=== PATIENT | female | born 1985 | race Caucasian/White ===

== ENCOUNTER 2016-11-19 20:06 | Emergency (ER) | payer MEDICAID, OTHER ==
[2016-11-19] VITALS (8 sets, daily range): BP systolic 137; BP diastolic 80; PULSE 79–88
--- NOTE | 2016-11-19 20:58 | PD ---
HPI Chief Complaint Blood pressure check Date Seen: Nov 19, 2016 Time Seen: 20:49 Travel History International Travel<30 Days: No Contact w/Intl Traveler<30Days: No Known Affected Area: No History of Present Illness HPI 31-year-old G1 at 36-3/7 weeks gestation with an EDC of December 15 who states that she had been feeling fine and checked her blood pressure at home on an automatic machine and thought that her blood pressure was elevated. She contacted her cook fishing vessel who instructed her to come here for evaluation. She denies any headache, visual changes, abdominal pain. She has had some lower extremity edema which was worse 3 days ago and now is mild. She denies any facial or upper extremity edema. She reports good movement. No bleeding or leakage of fluid. Para: 0 : 1 History Past Medical History Narrative Medical History of asthma for which she takes no medication. She has had no symptoms for 4-5 years Obstetric History Obstetric History Primigravida, uncomplicated care with Elaine Forte Past Surgical History Narrative Surgical Perirectal fistula Family History Family History: Negative Social History Alcohol Use: No Tobacco Use: No Substance Abuse: No Review of Systems Except as stated in HPI: all other systems reviewed are Neg Physical Exam Narrative GENERAL: Well-nourished, well-developed patient. SKIN: Warm and dry. HEAD: Normocephalic and atraumatic. EYES: No scleral icterus. No injection or drainage. ENT: No nasal drainage noted. Mucous membranes pink. Airway patent. NECK: Supple, trachea midline. No JVD. CARDIOVASCULAR: Regular rate and rhythm without murmurs, gallops, or rubs. RESPIRATORY: Breath sounds equal bilaterally. No accessory muscle use. ABDOMEN/GI: Abdomen soft, non-tender, bowel sounds present, no rebound, no guarding Gravid to [-] weeks size Fundal Height: [-] GENITOURINARY: External Genitalia: intact and normal in appearance BUS glands: [-] Cervix: [-] Dilatation: [-] Effacement: [-] Station: [-] Presentation: [-] Membranes: [intact or ruptured] Uterine Contractions: [-] FHT's: Category: [1-] Baseline: [-] Reactive: [Yes-] Variability: [-] Decels: [-] EXTREMITIES: No cyanosis, trace lower extremity edema. BACK: Nontender without obvious deformity. No CVA tenderness. NEUROLOGICAL: Awake and alert. Motor and sensory grossly within normal limits. Five out of 5 muscle strength in all muscle groups. Normal speech. No hyperactive deep tendon reflexes Data Data Vital Signs Reviewed: Yes MDM Medical Record Reviewed: Yes Narrative Course / MDM Assessment: Primigravida at 36+ weeks gestation with reported elevated blood pressure at home Plan: Her blood pressure is normal upon arrival here. Urinalysis will be performed to check for proteinuria. No other signs or symptoms of preeclampsia. Addendum: Negative proteinuria, blood pressure remains in the normal range, patient will be discharged home with precautions. Diagnosis Diagnosis: Primary Impression: 36 weeks gestation of Additional Impression: Hypertension affecting in third trimester Randy Melchor MD Nov 19, 2016 20:58
[2016-11-19 21:25] LABS: BACTERIA, URINE MOD /hpf; BLOOD, URINE NEG (NEG); COMMENT (UR) CULTURE INDICATED; CULTURE IF INDICATED CULTURE INDICATED; GLUCOSE,URINE NEG (NEG); KETONE, URINE NEG (NEG); NITRITE,URINE NEG (NEG); PH, URINE 6.5 (5.0-8.5); SQUAMOUS EPITHELIAL CELL URINE 1 /hpf (0-5); URINE COLOR COLORLESS (YELLW/STRAW)
== END 2016-11-19 22:00 | disposition home or self-care (01) ==
LOC: HOBED 20:06
DX: O16.3 Unspecified maternal hypertension, third trimester (principal); R82.90 Unspecified abnormal findings in urine; Z3A.36 36 weeks gestation of pregnancy
CPT/HCPCS: 81001; 82570; 84156; 87086; 99284

== ENCOUNTER 2016-11-23 04:00 | Inpatient (IN) | payer MEDICAID, OTHER ==
[~2016-11-23] VITALS: Ht 170.2 cm; Wt 79.4 kg
[2016-11-23] VITALS (48 sets, daily range): BP systolic 115–145; BP diastolic 61–89; PULSE 66–91; RESP 16–20; TEMP 98.2–98.5
[2016-11-23] MEDS ORDERED: CALNTAB (05:06)
[2016-11-23] MEDS ORDERED: MAGN500T4 PO (05:06)
[2016-11-23] MEDS: LACTATED RINGER'S 1000 ML INJ 1,000 ML IV SCH ×4 (05:07→21:30)
[2016-11-23] MEDS ORDERED: LACTATED RINGER'S 1000 ML INJ 1,000 ML IV PRN (05:07)
[2016-11-23] MEDS ORDERED: LIDOCAINE HCL 1% 50 ML VIAL INFIL PRN (05:15)
[2016-11-23] MEDS ORDERED: LIDOCAINE HCL 1% 50 ML VIAL I-DERMAL PRN (05:15)
[2016-11-23] MEDS ORDERED: OXYTOCIN 30 UNITS-500ML PREMIX 500 ML IV ONE (05:15)
[2016-11-23] MEDS ORDERED: MINERAL OIL 10 ML VIAL TOPICAL PRN (05:15)
[2016-11-23] MEDS ORDERED: ONDANSETRON HCL 4 MG/2 ML VIAL IV PRN (05:15)
[2016-11-23] MEDS ORDERED: SODIUM CHLORID 0.9% 500 ML INJ 500 ML IV PRN (05:15)
[2016-11-23] MEDS ORDERED: SODIUM CHLOR 0.9% 1000 ML INJ 1,000 ML IV PRN (05:27)
[2016-11-23 05:45] LABS: AMPHETAMINE, URINE NEG (NEG); BARBITURATES, URINE NEG (NEG); COCAINE, URINE NEG (NEG)
[2016-11-23 05:51] LABS: AUTOMATED NEUTROPHIL # 7.5 TH/MM3 (1.8-7.7); BASOPHIL # 0.1 TH/MM3 (0-0.2); EOSINOPHIL # 0.1 TH/MM3 (0-0.4); HEMO FLAGS DIFF FINAL; LYMPHOCYTE # 1.3 TH/MM3 (1.0-4.8); MEAN CELL VOLUME 84.6 FL (80.0-100.0); MEAN CORPUSCULAR HEMOGLOBIN 28.8 PG (27.0-34.0); MEAN CORPUSCULAR HGB CONC 34.1 % (32.0-36.0); PLATELET COUNT 229 TH/MM3 (150-450); RED CELL DISTRIBUTION WIDTH 13.5 % (11.6-17.2)
--- NOTE | 2016-11-23 06:11 | PD ---
HPI Chief Complaint Ordaz of Fluid Date Seen: Nov 23, 2016 (Haim Eid MD R1) Travel History International Travel<30 Days: No Contact w/Intl Traveler<30Days: No Known Affected Area: No (Haim Eid MD R1) History of Present Illness HPI Mrs. Sparks is a 31 y/o at 36/6 with no significant PMHx presents with ordaz of fluid. She states that at approximately 0330 she was lying in bed when she had a ordaz of fluid coming from her vagina. At first she thought that she had an episode of incontinence, however the fluid kept draining. She states the fluid was clear and not foul smelling. She endorses good movement with no vaginal discharge or bleeding. Her care has been with Elaine Forte and has been uncomplicated thus far. She was last seen in the OB ED on 11/19/16 for evaluation of elevated blood pressures at home. She was found to be normotensive in the ED without proteinuria on UA with a Protein/Creatinine ratio of 0. She was then discharged home with bedrest which she has been compliant with. She has no other complaints and denies any fevers, chills, SOB, chest pain, NVD, edema, or calf tenderness. (Haim Eid MD R1) History Past Medical History Narrative Medical Denies significant Hx (Haim Eid MD R1) Obstetric History Obstetric History G1PO Uncomplicated thus far, care with Elaine Forte (Haim Eid MD R1) Past Surgical History Narrative Surgical Perirectal Fistula Repair - 2010 (Haim Eid MD R1) Family History Narrative Family History Denies significant FMHx (Haim Eid MD R1) Social History Narrative Social History Denies any history of alcohol, tobacco, illicit drug use, herpes, hepatitis, HIV , or STI infection. Alcohol Use: No Tobacco Use: No Substance Abuse: No (Haim Eid MD R1) Allergies-Medications (Allergen,Severity, Reaction): Coded Allergies: Doxycycline (Verified Allergy, Severe, ANAPHLACTIC, 11/23/16) Home Meds Reported Medications Magnesium 500 Mg [id number] Mg PO DAILY Ref 0 11/23/16 Vitamin (Calna)1 Tab Tab 11/23/16 Review of Systems General / Constitutional: No: Fever, Chills Eyes: No: Blurred Vision HENT: No: Headaches Cardiovascular: No: Chest Pain or Discomfort Respiratory: No: Cough, Short of Breath Gastrointestinal: No: Nausea, Vomiting, Diarrhea Genitourinary: No: Dysuria, Discharge, Vaginal Bleeding Musculoskeletal: No: Weakness Skin: No Rash Neurologic: No: Weakness Psychiatric: No: Substance Abuse Endocrine: No: Polydipsia Hematologic/Lymphatic: No Lymph Node Enlargement (Haim Eid MD R1) Physical Exam Narrative GENERAL: Well-nourished, well-developed patient. SKIN: Warm and dry. HEAD: Normocephalic and atraumatic. EYES: No scleral icterus. No injection or drainage. ENT: No nasal drainage noted. Mucous membranes pink. Airway patent. NECK: Supple, trachea midline. No JVD. CARDIOVASCULAR: Regular rate and rhythm without murmurs, gallops, or rubs. RESPIRATORY: Breath sounds equal bilaterally. No accessory muscle use. ABDOMEN/GI: Abdomen soft, non-tender, bowel sounds present, no rebound, no guarding Gravid to 36 weeks size GENITOURINARY: External Genitalia: intact and normal in appearance Cervix: Posterior Dilatation: 1cm Effacement: 0% Station: -3 Membranes: SROM Uterine Contractions: Mild, Q4m FHT's: Category: 1 Baseline: 145 Reactive: + Variability: Moderate Decels: None EXTREMITIES: No cyanosis or edema. BACK: Nontender without obvious deformity. No CVA tenderness. NEUROLOGICAL: Awake and alert. Motor and sensory grossly within normal limits. Five out of 5 muscle strength in all muscle groups. Normal speech. (Haim Eid MD R1) Data Data Vital Signs Reviewed: Yes Orders Ob (2e) Additional Admit Info (11/23/16 04:21) Vital Signs (Adult) .ON ADMISSION (11/23/16 04:59) ^ Labor Status (11/23/16 04:59) ^ Non Stress Test (11/23/16 04:59) Pamg-1 Test .ONCE (11/23/16 04:59) Admit To Inpatient (11/23/16 ) Code Status (11/23/16 05:07) Vital Signs (Adult) .Per protocol (11/23/16 05:07) Activity Oob Ad Priscilla (11/23/16 05:07) ^ Heart (11/23/16 05:07) ^ Amnioinfusion (11/23/16 05:07) Urinary Catheter Management .ONCE (11/23/16 05:07) Diet Liquid (11/23/16 Breakfast) Lactated Ringer's 1000 Ml Inj (Lr 1000 M (11/23/16 05:07) Lactated Ringer's 1000 Ml Inj (Lr 1000 M (11/23/16 05:07) Sodium Chlorid 0.9% 500 Ml Inj (Ns 500 M (11/23/16 05:15) Sodium Chlor 0.9% 1000 Ml Inj (Ns 1000 M (11/23/16 05:27) Lidocaine 1% Inj (50 Ml) (Xylocaine 1% I (11/23/16 05:15) Citric Acid-Sodium Citrate Liq (Bicitra (11/23/16 05:15) Ondansetron Inj (Zofran Inj) (11/23/16 05:15) Fentanyl Inj (Fentanyl Inj) (11/23/16 05:15) Fentanyl Inj (Fentanyl Inj) (11/23/16 05:15) Complete Blood Count With Diff (11/23/16 05:07) Hold Clot (11/23/16 05:07) Abo/Rh Blood Type (11/23/16 05:07) Resp Oxygen Non Rebreathe Mask (11/23/16 ) ^ Epidural / Intrathecal Infus (11/23/16 05:07) Oxytocin 30 Units-500ml Premix (Pitocin (11/23/16 05:15) Lidocaine 1% Inj (50 Ml) (Xylocaine 1% I (11/23/16 05:15) Light Mineral Oil (Muri-Lube Oil) (11/23/16 05:15) Inpatient Certification (11/23/16 ) Ob/Psych Drug Screen, Urine (11/23/16 05:07) Group B Strep Pcr (11/23/16 05:08) (Haim Eid MD R1) MDM Medical Record Reviewed: Yes Plan Mrs. Sparks is a 31 y/o at 36/6 with no significant PMHx presents with ordaz of fluid 1. IUP at 36/6 -Continue routine antepartum care -Category 1 tracing, reassuring -Encourage PO hydration 2. Late PROM -Patient with rupture of membranes with clear fluid at 0330 -Admit patient for delivery, anticipate , orders placed -Team will evaluate patient's progression of labor at this time, discussed labor augmentation if necessary, mother agreeable and all questions were answered -Patient agreeable to epidural anesthesia when pain becomes intolerable -Clear liquid diet -CBC, UA, and UDS pending -GBS unknown, rapid PCR pending DW: Dr. Michelle and Dr. Wallace (Haim Eid MD R1) Attending Attestation PPROM @ 36w6d care with [facility] GBS pending, prophylaxis ordered while awaiting CAT I FHT Clear fluid Pitocin augmentation as indicated (Tuyet Michelle MD) Diagnosis Diagnosis: Primary Impression: 36 weeks gestation of Additional Impressions: Rupture of membranes with clear amniotic fluid premature rupture of membranes (PPROM) with onset of labor within 24 hours of rupture in third trimester, antepartum Haim Eid MD R1 Nov 23, 2016 06:11 Tuyet Michelle MD Nov 23, 2016 06:31
[2016-11-23] MEDS ORDERED: OXYTOCIN 30 UNITS-500ML PREMIX 500 ML IV SCH ×3 (07:15→18:30)
[2016-11-23] MEDS ORDERED: AMMONIA AROMATIC INHALANT 0.33 ML ONE (10:35)
[2016-11-23] MEDS ORDERED: fentaNYL 2MCG-BUPIV 0.125% INJ 100 ML EPIDURAL SCH ×2 (11:45→12:00)
[2016-11-23] MEDS ORDERED: NO SYSTEM NARCOTICS XX PRN ×2 (11:45→12:00)
[2016-11-23] MEDS ORDERED: ePHEDrine/NS 50 MG/5 ML SYR IV PRN ×2 (11:45→12:00)
[2016-11-23] MEDS ORDERED: DO NOT ADMINISTER ANTICOAGULANTS XX PRN ×2 (11:45→12:00)
[2016-11-23] MEDS ORDERED: fentaNYL 2MCG-BUPIV 0.125% INJ 100 ML ONE (20:32)
[2016-11-23] MEDS ORDERED: PENICILLIN G POT 5,000,000 UNITS/NS 100 ML(Mini-Bag Plus) IV ONE ×2 (22:15)
[2016-11-24] VITALS (66 sets, daily range): BP systolic 114–149; BP diastolic 72–98; PULSE 71–154; RESP 16–18; TEMP 98–98.9
[2016-11-24] MEDS: PENICILLIN G POT 2,500,000 UNITS/NS 100 ML IV SCH ×6 (02:37→10:54)
[2016-11-24] MEDS ORDERED: fentaNYL 2MCG-BUPIV 0.125% INJ 100 ML ONE (04:12)
--- NOTE | 2016-11-24 09:01 | PD.LABORPN ---
Subjective Subjective Patient resting in bed comfortably. Feeling contractions every 2-3 minutes. Denies vaginal bleeding. Endorses movement. (Jan Pratt MD R1) Objective Vital Signs Vital Signs Date Time Temp Pulse Resp B/P Pulse Ox O2 Delivery O2 Flow Rate FiO2 11/24/16 07:40 154 11/24/16 07:35 76 11/24/16 07:30 78 137/86 11/24/16 07:20 75 11/24/16 07:15 75 139/83 11/24/16 07:13 98.9 11/24/16 07:10 73 11/24/16 07:05 81 11/24/16 07:00 80 143/78 11/24/16 06:55 80 11/24/16 06:50 75 11/24/16 06:45 76 132/85 11/24/16 06:38 18 11/24/16 06:30 75 11/24/16 06:30 77 137/82 11/24/16 06:25 80 11/24/16 06:21 98.7 11/24/16 06:20 80 11/24/16 06:15 87 11/24/16 06:15 90 18 130/78 11/24/16 06:00 80 120/85 11/24/16 06:00 82 11/24/16 05:45 78 11/24/16 05:45 77 18 130/76 11/24/16 05:30 83 11/24/16 05:30 80 131/76 11/24/16 05:15 85 16 136/78 11/24/16 05:15 85 11/24/16 05:00 89 142/84 11/24/16 05:00 86 11/24/16 04:50 88 11/24/16 04:45 87 137/92 11/24/16 04:45 90 11/24/16 04:30 92 140/91 11/24/16 04:30 91 11/24/16 04:19 18 11/24/16 04:15 92 11/24/16 04:15 91 140/87 11/24/16 04:06 98.7 11/24/16 04:04 18 11/24/16 04:00 74 128/78 11/24/16 04:00 76 11/24/16 03:50 74 11/24/16 03:45 76 129/77 11/24/16 03:45 78 11/24/16 03:30 86 11/24/16 03:30 85 18 128/79 11/24/16 03:20 86 11/24/16 03:15 81 129/81 11/24/16 03:15 92 11/24/16 03:00 86 120/76 11/24/16 03:00 88 11/24/16 02:45 91 11/24/16 02:45 91 130/78 11/24/16 02:37 16 11/24/16 02:35 84 11/24/16 02:30 88 11/24/16 02:30 89 125/79 11/24/16 02:15 91 11/24/16 02:15 93 131/83 11/24/16 02:15 18 11/24/16 02:04 98.6 11/24/16 02:00 92 136/98 11/24/16 01:45 86 137/87 11/24/16 01:45 90 11/24/16 01:30 82 133/80 11/24/16 01:30 79 11/24/16 01:25 99 11/24/16 01:20 87 11/24/16 01:15 81 11/24/16 01:15 80 129/91 11/24/16 01:00 87 11/24/16 01:00 94 149/89 Objective Pelvic Exam: Dilatation: 4-5 Effacement: 80 Station: -2 Presentation: vertex Membranes: ruptured Uterine Contractions: q2-3 minutes FHT's: Category: 1 Baseline: 130 Reactive: yes Variability: moderate Decels: none (Jan Pratt MD R1) Assessment/Plan Assessment and Plan Mrs. Sparks is a 31 y/o at 37/0 in labor Cervical check: 4-5/80/-2 1. IUP at 37w -Continue routine antepartum care -Category 1 tracing, reassuring -Encourage PO hydration -Epidural in place -CLD -Anticipate (Jan Pratt MD R1) Attestation Patient seen and examined with the resident under direct supervision and I agree with the assessment and plan. (Marcos Nix MD) Jan Pratt MD R1 Nov 24, 2016 09:00 Madhavi Casas MD Nov 24, 2016 13:17 Marcos Nix MD Nov 26, 2016 11:29 -GBS unknown, rapid PCR pending Jan Pratt MD R1 Nov 24, 2016 09:00
[2016-11-24] MEDS ORDERED: LACTATED RINGER'S 1000 ML INJ 1,000 ML IV ONE (13:03)
--- NOTE | 2016-11-24 13:13 | PD.LABORPN ---
Subjective Subjective Patient seen and examined at bedside. Cervical exam 4-5/60/-2, unchanged for several hours. Patient receiving Pitocin and Ampicillin for GBS prophylaxis. SROM at 0300 on 11-23-15. heart rate tracing overall reassuring, 150s, Category 1, contractions q 2-3 minutes. D/w patient and partner current status and recommendation to proceed with delivery via section. R/B/A reviewed, all questions answered. Anesthesia/Peds notified. Will prepare for primary C/S. Objective Vital Signs Vital Signs Date Time Temp Pulse Resp B/P Pulse Ox O2 Delivery O2 Flow Rate FiO2 11/24/16 09:30 73 129/78 11/24/16 09:15 76 122/78 11/24/16 09:00 74 114/75 11/24/16 08:45 76 124/81 11/24/16 08:31 76 120/74 11/24/16 08:15 87 140/88 11/24/16 08:00 81 139/86 11/24/16 07:45 76 126/86 11/24/16 07:40 154 11/24/16 07:35 76 11/24/16 07:30 78 137/86 11/24/16 07:30 72 11/24/16 07:20 75 11/24/16 07:15 75 11/24/16 07:15 75 139/83 11/24/16 07:13 98.9 11/24/16 07:10 73 11/24/16 07:05 81 11/24/16 07:00 80 143/78 11/24/16 07:00 76 11/24/16 06:55 80 11/24/16 06:50 75 11/24/16 06:45 79 11/24/16 06:45 76 132/85 11/24/16 06:38 18 11/24/16 06:30 75 11/24/16 06:30 77 137/82 11/24/16 06:25 80 11/24/16 06:21 98.7 11/24/16 06:20 80 11/24/16 06:15 87 11/24/16 06:15 90 18 130/78 11/24/16 06:00 80 120/85 11/24/16 06:00 82 11/24/16 05:45 78 11/24/16 05:45 77 18 130/76 11/24/16 05:30 83 11/24/16 05:30 80 131/76 11/24/16 05:15 85 16 136/78 11/24/16 05:15 85 Objective Pelvic Exam: Cervix: [-] Dilatation: [-] Effacement: [-] Station: [-] Presentation: [-] Membranes: [intact or ruptured] Uterine Contractions: [-] FHT's: Category: [-] Baseline: [-] Reactive: [-] Variability: [-] Decels: [-] Madhavi Casas MD Nov 24, 2016 13:13
[2016-11-24] MEDS: CITRIC ACID-SODIUM CITRATE LIQ 30 ML UDC PO SCH ×2 (13:18→13:19)
[2016-11-24] MEDS ORDERED: OXYTOCIN 10 UNIT/ML AMP ONE (13:20)
[2016-11-24] MEDS ORDERED: LACTATED RINGER'S 1000 ML INJ 1,000 ML IV SCH ×2 (13:33→19:44)
[2016-11-24] MEDS ORDERED: MORPHINE SULFATE PF 5 MG/10 ML VIAL ONE (14:03)
[2016-11-24] MEDS ORDERED: ONDANSETRON HCL 4 MG/2 ML VIAL ONE (14:03)
[2016-11-24] MEDS ORDERED: ceFAZolin 2 GM PREMIX 50 ML IV SCH (14:15)
[2016-11-24] MEDS ORDERED: EPIDURAL-DIPHENHYDRAMINE HCL 50 MG CAP PO PRN (14:30)
[2016-11-24] MEDS ORDERED: EPIDURAL-DO NOT ADMINISTER ANTICOAGULANTS XX PRN (14:30)
[2016-11-24] MEDS ORDERED: EPIDURAL-NO SYSTEMIC NARCOTICS XX PRN (14:30)
[2016-11-24] MEDS ORDERED: EPIDURAL-NALOXONE HCL 0.4 MG/ML AMP IV PRN (14:30)
[2016-11-24] MEDS ORDERED: EPIDURAL-DIPHENHYDRAMINE HCL 50 MG/ML VIAL IV PUSH PRN (14:30)
[2016-11-24] MEDS ORDERED: OXYTOCIN 30 UNITS-500ML PREMIX 500 ML IV ONE (14:45)
[2016-11-24] MEDS ORDERED: CITRIC ACID-SODIUM CITRATE LIQ 30 ML UDC PO SCH (14:45)
[2016-11-24] MEDS ORDERED: SODIUM CHLORIDE 0.9% FLUSH 5 ML FLUSH IV PRN (14:45)
[2016-11-24] MEDS ORDERED: oxyCODONE/ACETAMINOPHEN 5 MG/325 MG TAB PO PRN ×2 (14:45)
[2016-11-24] MEDS ORDERED: ONDANSETRON HCL 4 MG/2 ML VIAL IV PUSH PRN (14:45)
[2016-11-24] MEDS ORDERED: SIMETHICONE 80 MG CHEWABLE TAB PO PRN (14:45)
--- NOTE | 2016-11-24 19:17 | PD.OB.DELI ---
Procedure Note Section Procedure Pre Op Diagnosis: (1) Prolonged antepartum rupture of membranes (2) 37 weeks gestation of (3) Rupture of membranes with clear amniotic fluid Post Op Diagnosis: (1) Prolonged antepartum rupture of membranes (2) 37 weeks gestation of (3) Rupture of membranes with clear amniotic fluid Performed by Madhavi Casas Procedure: Primary Low Transverse Sec Indication for delivery: Other (Arrest of dilation) Confirmed correct: Time-out taken Anesthesia: Epidural Medication prior to procedure: As documented in eMAR, Antibiotics, IV Urinary catheter: ml urine output (275, clear) Sterile preparation: In usual fashion Position: Supine Operative Features Skin Incision: Pfannenstiel Uterine Incision: Low transverse w/knife / blunt ext Membranes Ruptured: Previously Presentation: Vertex Time of : 13:54 Infant: Male One Minute : 9 Five Minute : 9 Weight: 3210 Status of : Viable Placenta delivered: Intact Medications: Oxytocin Estimated blood loss: 500 Procedure tolerated: Well Maternal Condition: Stable Condition: Stable Procedure in detail Dictated Madhavi Casas MD Nov 24, 2016 19:17
[2016-11-24] MEDS ORDERED: SODIUM CHLORIDE 0.9% FLUSH 5 ML FLUSH IV SCH (21:00)
[2016-11-25] MEDS: IBUPROFEN 600 MG TAB PO PRN ×4 (01:19→23:38)
[2016-11-25 04:38] LABS: AUTOMATED NEUTROPHIL # 10.6 TH/MM3 (1.8-7.7); BASOPHIL % 0.4 % (0.0-2.0); EOSINOPHIL # 0.1 TH/MM3 (0-0.4); EOSINOPHIL % 0.5 % (0.0-4.0); HEMATOCRIT 27.3 % (35.0-46.0); HEMO FLAGS DIFF FINAL; LYMPHOCYTE # 0.9 TH/MM3 (1.0-4.8); MEAN CELL VOLUME 84.5 FL (80.0-100.0); MEAN CORPUSCULAR HEMOGLOBIN 29.2 PG (27.0-34.0); MEAN CORPUSCULAR HGB CONC 34.6 % (32.0-36.0); MONO % 8.2 % (0.0-8.0); NEUT % 83.9 % (16.0-70.0); PLATELET COUNT 168 TH/MM3 (150-450); RED BLOOD COUNT 3.23 MIL/MM3 (4.00-5.30); RED CELL DISTRIBUTION WIDTH 13.7 % (11.6-17.2); WHITE BLOOD COUNT 12.6 TH/MM3 (4.0-11.0)
--- NOTE | 2016-11-25 07:09 | HHI.OB ---
Subjective Post Operative Day: 1 Remarks Postoperative day number 1. AFVSS overnight. Pain controlled with medications. Incision not draining. Decreased lochia. Denies dysuria. No breast tenderness. She is feeding the baby via breast. Appetite good. No nausea or vomiting. Endorses flatus. No bowel movement. Ambulating well. Denies calf pain, shortness of breath, or cough. Otherwise, she is doing well this morning and has no other complaints. (Jan Pratt MD R1) Remarks Patient seen and examined. Agree with resident assessment and plan. (Madhavi Casas MD) Objective Vitals/I&O Vital Signs Date Time Temp Pulse Resp B/P Pulse Ox O2 Delivery O2 Flow Rate FiO2 11/24/16 23:00 91 18 142/88 11/24/16 23:00 98.7 11/24/16 20:00 98.0 90 18 135/76 11/24/16 16:00 98.8 88 18 128/78 11/24/16 09:30 73 129/78 11/24/16 09:15 76 122/78 11/24/16 09:00 74 114/75 11/24/16 08:45 76 124/81 11/24/16 08:31 76 120/74 11/24/16 08:15 87 140/88 11/24/16 08:00 81 139/86 11/24/16 07:45 76 126/86 11/24/16 07:40 154 11/24/16 07:35 76 11/24/16 07:30 78 137/86 11/24/16 07:30 72 11/24/16 07:20 75 11/24/16 07:15 75 11/24/16 07:15 75 139/83 11/24/16 07:13 98.9 11/24/16 07:10 73 (Jan Pratt MD R1) Result Diagram: 11/25/16 0424 Objective Remarks GENERAL: Well-nourished, well-developed patient. CARDIOVASCULAR: Regular rate and rhythm without murmurs, gallops, or rubs. RESPIRATORY: Breath sounds equal bilaterally. No accessory muscle use. ABDOMEN/GI: Abdomen soft, non-tender, bowel sounds present. Incision: Clean, dry and intact. Fundus: Firm, non-tender at umbilicus. GENITOURINARY: Light to moderate bleeding. EXTREMITIES: No cyanosis or edema, non-tender, without signs of DVT. Medications and IVs Current Medications Medications (Trade) Dose Ordered Sig/David Route Start Time Stop Time Status Last Admin (Zofran Inj) 4 mg Q6H PRN IV 11/23/16 05:15 11/24/16 20:06 (fentaNYL INJ) 50 mcg Q1H PRN IV PUSH 11/23/16 05:15 11/23/16 17:36 (fentaNYL INJ) 100 mcg Q1H PRN IV PUSH 11/23/16 05:15 Mineral Oil 10 ml 10 ml UNSCH PRN TOPICAL 11/23/16 05:15 Oxytocin 500 ml @ 0 mls/hr TITRATE IV 11/23/16 18:30 11/24/16 02:09 Fentanyl/ Bupivacaine HCl 100 ml @ 0 mls/hr TITRATE EPIDURAL 11/23/16 12:00 11/24/16 14:56 (Lr 1000 ml Inj) 1,000 ml @ 100 mls/hr Q10H IV 11/24/16 19:44 11/25/16 15:43 (NS Flush) 2 ml BID IV 11/24/16 21:00 (NS Flush) 2 ml UNSCH PRN IV 11/24/16 14:45 (Mylicon Chew) 80 mg QID PRN PO 11/24/16 14:45 (Motrin) 600 mg Q6H PRN PO 11/24/16 14:45 11/25/16 01:19 (Percocet 5-325 Mg) 1 tab Q4H PRN PO 11/24/16 14:45 (Percocet 5-325 Mg) 2 tab Q4H PRN PO 11/24/16 14:45 (M-M-R Ii Inj) 0.5 ml ONCE ONCE SQ 11/25/16 16:00 11/25/16 16:01 (Boostrix Inj) 0.5 ml ONCE ONCE IM 11/25/16 16:00 11/25/16 16:01 (Zofran Inj) 4 mg Q6H PRN IV PUSH 11/24/16 14:45 Miscellaneous Information NO SYSTEMIC NARCOTICS TO BE GIVEN FO... UNSCH PRN XX 11/24/16 14:30 11/25/16 14:29 (Narcan Inj) 0.4 mg UNSCH PRN IV 11/24/16 14:30 11/25/16 14:29 (Benadryl Inj) 25 mg Q6H PRN IV PUSH 11/24/16 14:30 11/25/16 14:29 (Benadryl) 50 mg Q6H PRN PO 11/24/16 14:30 11/25/16 14:29 Miscellaneous Information ALL NURSING DEPARTMENTS UNSCH PRN XX 11/24/16 14:30 11/25/16 14:29 (Jan Pratt MD R1) Assessment/Plan Assessment and Plan 31y/o female who is POD#1 s/p CXN. -Continue routine care. -Percocet and Motrin PRN pain. -Encouraged OOB. Advised pelvic rest for 6 wks. Will need a f/u appt. in 1 wk for incision check. -Re: ctrl, she is undecided -D/c in 1-2 more days. wdw OB attending Discharge Planning 1-2 days (Jan Pratt MD R1) Jan Pratt MD R1 Nov 25, 2016 07:08 Madhavi Casas MD Nov 25, 2016 09:21
[2016-11-25 08:00] VITALS: BP 136/68; PULSE 84; RESP 22; TEMP 97.9
[2016-11-25] MEDS ORDERED: MEASLES, MUMPS, RUBELLA VACCINE 0.5 ML VIAL SQ ONE (16:00)
[2016-11-25] MEDS ORDERED: DIPHTH/TETANUS/ACEL PERTUSSIS (BOOSTER) 0.5 ML VIAL/PFS IM ONE (16:00)
[2016-11-25] MEDS ORDERED: DOCUSATE SODIUM 50 MG/SENNA 8.6 MG TAB PO PRN (16:15)
[2016-11-25 16:44] VITALS: BP 127/79; PULSE 87; RESP 20; TEMP 98.8
[2016-11-25 19:30] VITALS: BP 115/73; PULSE 97; RESP 18; TEMP 98.6; O2SAT 96
[2016-11-26 06:45] LABS: BATH SALTS (MDPV) UR NEG (NEG); ECSTASY (MDMA) UR NEG (NEG); HEROIN (6-ACETYLMORPHINE) UR NEG (NEG); K2 SPICE UR NEG (NEG); OBMETHADONE UR NEG (NEG); OXYCODONE (PERCODAN) NEG (NEG); PHENCYCLIDINE URINE NEG (NEG)
[2016-11-26 08:00] VITALS: BP 108/71; PULSE 77; RESP 18; TEMP 98.4
--- NOTE | 2016-11-26 08:19 | HHI.OB ---
Subjective Remarks 31 year old POD 2 after for arrest of labor. She is doing well this morning. Pain well controlled with Ibuprofen. Lochia is minimal. Feeding via breast. Will follow with Elaine Forte. Undecided on control. Objective Vitals/I&O Vital Signs Date Time Temp Pulse Resp B/P Pulse Ox O2 Delivery O2 Flow Rate FiO2 11/25/16 19:30 98.6 11/25/16 19:30 97 18 115/73 96 11/25/16 16:44 98.8 87 20 127/79 Result Diagram: 11/25/16 0424 Objective Remarks GENERAL: Well-nourished, well-developed patient. CARDIOVASCULAR: Regular rate and rhythm without murmurs, gallops, or rubs. RESPIRATORY: Breath sounds equal bilaterally. No accessory muscle use. ABDOMEN/GI: Abdomen soft, non-tender, bowel sounds present. Incision: Clean, dry and intact. Fundus: Firm, non-tender at umbilicus. GENITOURINARY: Light to moderate bleeding. EXTREMITIES: No cyanosis or edema, non-tender, without signs of DVT. Medications and IVs Current Medications Medications (Trade) Dose Ordered Sig/David Route Start Time Stop Time Status Last Admin (Zofran Inj) 4 mg Q6H PRN IV 11/23/16 05:15 11/24/16 20:06 (fentaNYL INJ) 50 mcg Q1H PRN IV PUSH 11/23/16 05:15 11/23/16 17:36 (fentaNYL INJ) 100 mcg Q1H PRN IV PUSH 11/23/16 05:15 Mineral Oil 10 ml 10 ml UNSCH PRN TOPICAL 11/23/16 05:15 Oxytocin 500 ml @ 0 mls/hr TITRATE IV 11/23/16 18:30 11/24/16 02:09 (fentaNYL 2MCG-BUPIV 0.125% INJ) 100 ml @ 0 mls/hr TITRATE EPIDURAL 11/23/16 12:00 11/24/16 14:56 (NS Flush) 2 ml BID IV 11/24/16 21:00 (NS Flush) 2 ml UNSCH PRN IV 11/24/16 14:45 (Mylicon Chew) 80 mg QID PRN PO 11/24/16 14:45 (Motrin) 600 mg Q6H PRN PO 11/24/16 14:45 11/25/16 23:38 (Percocet 5-325 Mg) 1 tab Q4H PRN PO 11/24/16 14:45 (Percocet 5-325 Mg) 2 tab Q4H PRN PO 11/24/16 14:45 (Zofran Inj) 4 mg Q6H PRN IV PUSH 11/24/16 14:45 (Sondra-Colace) 2 tab Q12H PRN PO 11/25/16 16:15 11/25/16 16:32 (Colace) 100 mg BID PO 11/26/16 09:00 Assessment/Plan Assessment and Plan 31y/o female who is POD#2 s/p CXN. -Motrin PRN pain. -Encouraged OOB. Advised pelvic rest for 6 wks. Will need a f/u appt. in 1 wk for incision check. -Re: ctrl, she is undecided wdw OB attending Souleymane Duvall MD R2 Nov 26, 2016 08:19
[2016-11-26] MEDS ORDERED: SIME80CH PO (08:39)
[2016-11-26] MEDS ORDERED: IBUP-232 PO (08:39)
[2016-11-26] MEDS ORDERED: OXYC1TAB63 PO (08:39)
[2016-11-26] MEDS ORDERED: SENN1TAB PO (08:39)
--- NOTE | 2016-11-26 08:40 | HHI.DCPOC ---
Discharge Care Plan Diagnosis: (1) delivery delivered Goals to Promote Your Health * To prevent worsening of your condition and complications * To maintain your health at the optimal level Directions to Meet Your Goals Take your medications as prescribed Follow your dietary instruction Follow activity as directed Keep your appointments as scheduled Take your immunizations and boosters as scheduled If your symptoms worsen call your PCP, if no PCP go to Urgent Care Center or Emergency Room Smoking is Dangerous to Your Health. Avoid second hand smoke Call the 24-hour hour crisis hotline for domestic abuse at Souleymane Duvall MD R2 Nov 26, 2016 08:40
[2016-11-26] MEDS ORDERED: DOCUSATE SODIUM 100 MG CAP PO SCH (09:00)
--- NOTE | 2016-11-26 09:14 | HHI.OB ---
Subjective Post Operative Day: 2 Remarks doing well , weston diet , ambulating , incision clean & dry seen with [facility] residents agree with eval & plan Objective Vitals/I&O Vital Signs Date Time Temp Pulse Resp B/P Pulse Ox O2 Delivery O2 Flow Rate FiO2 11/25/16 19:30 98.6 11/25/16 19:30 97 18 115/73 96 11/25/16 16:44 98.8 87 20 127/79 Result Diagram: 11/25/16 0424 Objective Remarks GENERAL: Well-nourished, well-developed patient. CARDIOVASCULAR: Regular rate and rhythm without murmurs, gallops, or rubs. RESPIRATORY: Breath sounds equal bilaterally. No accessory muscle use. ABDOMEN/GI: Abdomen soft, non-tender, bowel sounds present. Incision: Clean, dry and intact. Fundus: Firm, non-tender at umbilicus. GENITOURINARY: Light to moderate bleeding. EXTREMITIES: No cyanosis or edema, non-tender, without signs of DVT. Medications and IVs Current Medications Medications (Trade) Dose Ordered Sig/David Route Start Time Stop Time Status Last Admin (Zofran Inj) 4 mg Q6H PRN IV 11/23/16 05:15 11/24/16 20:06 (fentaNYL INJ) 50 mcg Q1H PRN IV PUSH 11/23/16 05:15 11/23/16 17:36 (fentaNYL INJ) 100 mcg Q1H PRN IV PUSH 11/23/16 05:15 Mineral Oil 10 ml 10 ml UNSCH PRN TOPICAL 11/23/16 05:15 Oxytocin 500 ml @ 0 mls/hr TITRATE IV 11/23/16 18:30 11/24/16 02:09 (fentaNYL 2MCG-BUPIV 0.125% INJ) 100 ml @ 0 mls/hr TITRATE EPIDURAL 11/23/16 12:00 11/24/16 14:56 (NS Flush) 2 ml BID IV 11/24/16 21:00 (NS Flush) 2 ml UNSCH PRN IV 11/24/16 14:45 (Mylicon Chew) 80 mg QID PRN PO 11/24/16 14:45 (Motrin) 600 mg Q6H PRN PO 11/24/16 14:45 11/25/16 23:38 (Percocet 5-325 Mg) 1 tab Q4H PRN PO 11/24/16 14:45 (Percocet 5-325 Mg) 2 tab Q4H PRN PO 11/24/16 14:45 (Zofran Inj) 4 mg Q6H PRN IV PUSH 11/24/16 14:45 (Sondra-Colace) 2 tab Q12H PRN PO 11/25/16 16:15 11/25/16 16:32 (Colace) 100 mg BID PO 11/26/16 09:00 11/26/16 08:28 Assessment/Plan Assessment and Plan 31y/o female who is POD#2 s/p CXN. -Motrin PRN pain. -Encouraged OOB. Advised pelvic rest for 6 wks. Will need a f/u appt. in 1 wk for incision check. -Re: ctrl, she is undecided wdw OB attending Arun Harrington II, MD Nov 26, 2016 09:14
[2016-11-26] MEDS: IBUPROFEN 600 MG TAB PO PRN (13:52)
--- NOTE | 2016-11-30 15:22 | MP ---
cc: KATHARINE CASAS MD DATE OF SURGERY 11/24/2016 PREOPERATIVE DIAGNOSIS A 31 year-old 1 at 37 weeks with prolonged spontaneous rupture of membranes in active labor and arrest of dilatation. POSTOPERATIVE DIAGNOSIS A 31 year-old 1 at 37 weeks with prolonged spontaneous rupture of membranes in active labor and arrest of dilatation. PROCEDURE Primary low transverse section via Pfannenstiel skin incision. SURGEON Katharine Casas MD TANK PROCESSOR MR Tech ANESTHESIA Epidural ESTIMATED BLOOD LOSS 500 cc IV FLUIDS 1500 cc lactated Ringer's URINE OUTPUT 275 cc clear at the end of the procedure FINDINGS A viable male in cephalic presentation with 's of 9 at one minute and 9 at five minutes. weight 3210 grams. The time of delivery 1354. PATHOLOGY Placenta COMPLICATIONS None PROCEDURE The patient was taken to the operating room where she was prepped and draped in the normal sterile fashion in supine position. After anesthesia was then deemed adequate, a Pfannenstiel skin incision was then made approximately 2 cm above the symphysis pubis and carried down to the underlying layer of the fascia with a knife. The fascia was then incised in the midline and extended laterally with Mcpherson scissors. The superior aspect of the fascia was then grasped with Jose Carlos clamps, elevated and the underlying muscle dissected with sharp dissection and in a similar fashion to the inferior aspect. The inferior fascia was grasped with Jose Carlos clamps and again the muscles were dissected with sharp and blunt dissection. The rectus muscles were in the midline. The peritoneum was then identified and entered bluntly. The bladder blade was then inserted and the vesicouterine peritoneum was identified and entered and a bladder flap was then created digitally. The bladder blade was then inserted into the bladder flap and a transverse incision was made on the lower uterine aspect as noted by finger fraction. The infant's head was then delivered atraumatically. The mouth and nares bulb suctioned. The anterior and posterior shoulders were maneuvered followed by the remainder of the body. The cord was clamped times two. The was then handed off to awaiting nursery staff. Attention was then returned to the patient where a three vessel placenta was then removed manually. The uterus was exteriorized, cleared of all clot and debris. The uterine incision was then repaired with 0 Vicryl in an interlock fashion. The second layer imbricated using the same suture. Two [id number] stitches were placed in the lower uterine segment using 2-0 Vicryl with good hemostasis noted. The abdomen and pelvis were then suctioned. The uterus was then returned to the abdomen and the peritoneum was reapproximated using 2-0 Vicryl in a running continuous fashion. The rectus muscles were then reapproximated in a U-stitch times two. The fascial incision was then approximated using 0 PDS in a running locked fashion and the subcutaneous adipose tissue was then irrigated. Cautery used where needed and then reapproximated using 2-0 plain gut in a running subcutaneous fashion in two layers. The skin was reapproximated using 4-0 Vicryl on a Cameron needle in a subcuticular fashion. All sponge, lap, instrument and needle counts were correct times two. Two grams of Ancef were administered prior to the start of the procedure and 20 units of Pitocin administered while in the OR and the patient was taken to the Recovery Room in stable condition. Katharine Casas MD JR/VINNY /2:54 PM /3:12 PM GEOVANI
== END 2016-11-26 16:15 | disposition home or self-care (01) | DRG 766 ==
LOC: HOBED 04:00 → H2EB 04:26 → H1EA 11-24 15:45
PROVIDERS: ADMIT Obstetrics & Gynecology; ATTEND Obstetrics & Gynecology
PROC: 00HU33Z Insertion of Infusion Device into Spinal Canal, Percutaneous Approach (ICD-10-PCS; 2016-11-23)
PROC: 3E0R3CZ (ICD-10-PCS; 2016-11-23)
PROC: 10D00Z1 Extraction of Products of Conception, Low, Open Approach (ICD-10-PCS; principal; 2016-11-24)
DX: O42.913 Preterm premature rupture of membranes, unspecified as to length of time between rupture and onset of labor, third trimester (principal); O62.0 Primary inadequate contractions; Z37.0 Single live birth; Z3A.37 37 weeks gestation of pregnancy
CPT/HCPCS: 80307; 85025; 86703; 86900; 86901; 87081; 87150; 99284; G0481; J0690; J2274; J2405; J2540; J2590; J3010; J7120

== ENCOUNTER 2016-12-06 14:15 | Emergency (ER) | payer SELFPAY ==
[~2016-12-06] VITALS: Ht 170.2 cm; Wt 69.1 kg
[~2016-12-06 14:15] MED LIST: CALNTAB; IBUP-232 PO; MAGN500T4 PO; OXYC1TAB63 PO; SENN1TAB PO; SIME80CH PO
[2016-12-06 14:17] VITALS: BP 180/89; PULSE 106; RESP 20; TEMP 98; O2SAT 98
== END 2016-12-06 18:45 | disposition left against medical advice (07) ==
LOC: NED 14:15
DX: I10 Essential (primary) hypertension (principal); R51 Headache; Z53.21 Procedure and treatment not carried out due to patient leaving prior to being seen by health care provider
CPT/HCPCS: 99281

== ENCOUNTER 2016-12-06 15:03 | Emergency (ER) | payer MEDICAID, OTHER ==
--- NOTE | 2016-12-06 16:00 | PD ---
HPI Chief Complaint high blood pressure Date Seen: Dec 06, 2016 Time Seen: 16:00 (Katerina Georges MD R1) Travel History International Travel<30 Days: No Contact w/Intl Traveler<30Days: No (Katerina Georges MD R1) History of Present Illness HPI 31 year-old , post-op day 12 from , presents with hypertension to 180/89, frontal headache, and "spots". She took her blood pressure at home this morning at 144/97. She called the intervention teacher, who measured b/p of 131/105 and told her to go to [facility] [facility], where b/p was 180/89 after waiting three hours in the ED. Her chief complaint is this elevated b/p and temporal/frontal headache of several days duration since she returned from the hospital. She took ibuprofen x1 this AM which helped minimally. Headache is relieved by lying flat and worsened by walking around. Also has nausea that started this morning and "spots" in front of her eyes yesterday while she was standing in the shower. She has seen these spots previously during her . Denies history of hypertension, fevers/chills, or emesis. her boy who is doing well. She denies history of anxiety or worry that may be increasing her blood pressure. Denies post- blues or depression. 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 (Katerina Georges MD R1) Family History Narrative Family History Per EMR (Katerina Georges MD R1) Social History Alcohol Use: No Tobacco Use: No Substance Abuse: No (Katerina Georges MD R1) Allergies-Medications (Allergen,Severity, Reaction): Coded Allergies: Doxycycline (Verified Allergy, Severe, ANAPHLACTIC, 12/06/16) "lip swelling, can't breathe" Home Meds Active Scripts Sennosides-Docusate Sodium (Senna Plus 8.6-50 mg)1 Tab Tab2 Tab PO Q12H PRN ( CONSTIPATION) #30 TAB Prov:Souleymane Duvall MD R2 11/26/16 Simethicone 80 Mg Chw80 Mg PO QID PRN (FLATULENCE) #30 EA Prov:Souleymane Duvall MD R2 11/26/16 Oxycodone-Acetaminophen 5-325 mg Tab1 Tab PO Q4H PRN (pain) #30 TAB Prov:Souleymane Duvall MD R2 11/26/16 Ibuprofen 600 Mg [id number] Mg PO Q6H PRN ( CRAMPING) #30 TAB Prov:Souleymane Duvall MD R2 11/26/16 Reported Medications Magnesium 500 Mg [id number] Mg PO DAILY Ref 0 11/23/16 Vitamin (Calna)1 Tab Tab 11/23/16 Review of Systems Except as stated in HPI: all other systems reviewed are Neg (Katerina Georges MD R1) Physical Exam Narrative GENERAL: Thin Adult female in no acute distress. SKIN: Warm and dry. HEENT: EOMI. Mucous membranes moist. CV: RRR. No murmurs. RESP: Breathing well on room air. No wheezing. Lungs CTAB. GI: Abdomen soft, non-tender, no masses, well-healing midline scar. EXTREMITIES: No cyanosis or edema. BACK: Nontender without obvious deformity NEUROLOGICAL: Awake and alert. Motor and sensory grossly within normal limits. 1 + patellar reflex on Left, 2+ patellar reflex R. (Katerina Georges MD R1) Data Data Vital Signs Reviewed: Yes Orders ^ Labor Status (12/06/16 15:53) Urinalysis - C+S If Indicated (12/06/16 15:53) ^ Hydration (12/06/16 15:53) Cbc No Diff, Includes Plts (12/06/16 15:53) Comprehensive Metabolic Panel (12/06/16 15:53) Vital Signs (Adult) Q30M (12/06/16 15:54) (Katerina Georges MD R1) Labs Laboratory Tests Test 12/06/16 12/06/16 15:15 16:37 Urine Color COLORLESS Urine Turbidity CLEAR Urine pH 7.0 Urine Specific [place] 1.003 Urine Protein NEG mg/dL Urine Glucose (UA) NEG mg/dL Urine Ketones NEG mg/dL Urine Occult Blood MOD Urine Nitrite NEG Urine Bilirubin NEG Urine Urobilinogen LESS THAN 2.0 MG/DL Urine Leukocyte Esterase LARGE Urine RBC 3 /hpf Urine WBC 8 /hpf Urine Squamous Epithelial <1 /hpf Cells Urine Bacteria OCC /hpf Microscopic Urinalysis Comment CULT NOT INDICATED White Blood Count 8.9 TH/MM3 Red Blood Count 4.01 MIL/MM3 Hemoglobin 11.6 GM/DL Hematocrit 34.2 % Mean Corpuscular Volume 85.2 FL Mean Corpuscular Hemoglobin 28.9 PG Mean Corpuscular Hemoglobin 33.9 % Concent Red Cell Distribution Width 14.0 % Platelet Count 456 TH/MM3 Mean Platelet Volume 7.4 FL Sodium Level 141 MEQ/L Potassium Level 4.1 MEQ/L Chloride Level 105 MEQ/L Carbon Dioxide Level 28.8 MEQ/L Anion Gap 7 MEQ/L Blood Urea Nitrogen 11 MG/DL Creatinine 0.58 MG/DL Estimat Glomerular Filtration 122 ML/MIN Rate Random Glucose 84 MG/DL Calcium Level 8.9 MG/DL Total Bilirubin 0.4 MG/DL Aspartate Amino Transf 22 U/L (AST/SGOT) Alanine Aminotransferase 32 U/L (ALT/SGPT) Alkaline Phosphatase 147 U/L Total Protein 7.0 GM/DL Albumin 3.3 GM/DL (Suzie Anthony MD) [facility] Medical Record Reviewed: Yes Plan 31 year-old POD12 from 11/24/16 presenting with hypertension 140/ 90+, frontal headache, and visual changes "spots" increasing suspicion for gestational hypertension. 1. Hypertension, rule out gestational hypertension - Monitor vitals q30 minutes: since admission, B/P 142/79, 140/79 - CBC, CMP, U/A pending - Based on labwork, will consider need for Mg for seizure prophylaxis SDW: Dr Anthony (Katerina Georges MD R1) Interpretation(s) Patient seen and examined. Mildly elevated bp with headache. Headache has been present since 24 hours . All labs normal. Will discharge with followup visit to her provider on Tuesday (Suzie Anthony MD) Diagnosis Diagnosis: Primary Impression: delivery delivered Additional Impressions: Headache care following delivery Disposition: DISCHARGE HOME Katerina Georges MD R1 Dec 06, 2016 16:00 Suzie Anthony MD Dec 06, 2016 18:58
[2016-12-06 16:38] LABS: BACTERIA, URINE OCC /hpf; BLOOD, URINE MOD (NEG); COMMENT (UR) CULT NOT INDICATED; CULTURE IF INDICATED CULT NOT INDICATED; GLUCOSE,URINE NEG (NEG); KETONE, URINE NEG (NEG); NITRITE,URINE NEG (NEG); SQUAMOUS EPITHELIAL CELL URINE <1 /hpf (0-5); URINE COLOR COLORLESS (YELLW/STRAW)
[2016-12-06 17:07] LABS: HEMATOCRIT 34.2 % (35.0-46.0); MEAN CELL VOLUME 85.2 FL (80.0-100.0); MEAN CORPUSCULAR HEMOGLOBIN 28.9 PG (27.0-34.0); MEAN CORPUSCULAR HGB CONC 33.9 % (32.0-36.0); PLATELET COUNT 456 TH/MM3 (150-450); RED BLOOD COUNT 4.01 MIL/MM3 (4.00-5.30); REVIEW FLAG FINAL; WHITE BLOOD COUNT 8.9 TH/MM3 (4.0-11.0)
[2016-12-06 17:19] LABS: ALT (GPT) 32 U/L (10-53); ANION GAP 7 MEQ/L (5-15); AST (GOT) 22 U/L (15-37); BICARBONATE 28.8 MEQ/L (21.0-32.0); BLOOD UREA NITROGEN 11 MG/DL (7-18); CHLORIDE 105 MEQ/L (98-107); GLOMERULAR FILTRATION RATE 122 ML/MIN (>89); POTASSIUM 4.1 MEQ/L (3.5-5.1); SODIUM (NA) 141 MEQ/L (136-145)
[2016-12-06 17:21] LABS: ALKALINE PHOSPHATASE 147 U/L (45-117); TOTAL BILIRUBIN ADULT 0.4 MG/DL (0.2-1.0)
== END 2016-12-06 18:00 | disposition home or self-care (01) ==
LOC: HOBED 15:03
DX: O90.89 Other complications of the puerperium, not elsewhere classified (principal); R51 Headache; Z98.890 Other specified postprocedural states; H53.8 Other visual disturbances; O16.5 Unspecified maternal hypertension, complicating the puerperium; Z87.09 Personal history of other diseases of the respiratory system
CPT/HCPCS: 36415; 80053; 81001; 85027